=== PATIENT | male | born 1945 | race Caucasian/White ===

== ENCOUNTER 2017-04-13 10:55 | Day surgery (SDC) | payer MEDICARE ==
[2017-04-13 12:10] LABS: BASO % 0.5 % (0-6); EOS % 2.6 % (0-6); GRAN % 72.5 % (47-80); HEMATOCRIT 45.1 % (42.0-52.0); HEMOGLOBIN 15.5 gm/dl (14.0-18.0); LYMPH % 15.9 % (16-45); MEAN CELL VOLUME 87.1 fl (81-97); MEAN CORPUSCULAR HEMOGLOBIN 29.9 pg (27-33); MEAN CORPUSCULAR HGB CONC 34.4 g/dl (32-36); MEAN PLATELET VOLUME 9.5 fl (7.4-10.4); MONO % 8.5 % (0-9); PLATELET COUNT 190 K/uL (130-400); RED BLOOD COUNT 5.18 M/uL (4.40-5.70); RED CELL DISTRIBUTION WIDTH 13.1 % (11.5-14.5); WHITE BLOOD COUNT W/O DIFF 7.3 K/uL (4.2-12.2)
[2017-04-13 12:18] LABS: ALB/GLOB RATIO 1.4 (1.1-1.8); ALBUMIN 3.9 gm/dL (3.5-5.0); ALKALINE PHOSPHATASE 56 U/L (38-126); ALT/SGPT 53 U/L (21-72); ANION GAP 8.4 (7-16); AST/SGOT 23 U/L (17-59); BILIRUBIN,TOTAL 0.98 mg/dL (0.2-1.3); BLOOD UREA NITROGEN 16 mg/dL (9-20); CARBON DIOXIDE 31.6 mmol/L (22-30); CREATININE 1.2 mg/dL (0.66-1.25); EST GLOMERULAR FILTRATION RATE > 60 ml/min; GLUCOSE,RANDOM 121 mg/dL (70-110); TOTAL PROTEIN 6.6 gm/dL (6.3-8.2)
[2017-04-13] MEDS ORDERED: PROPOFOL 10 MG/ML VIAL IV ONE (14:00)
[2017-04-13] MEDS ORDERED: LIDOCAINE 2% MDV (20MG/ML) 20ML VIAL IV ONE (14:00)
--- NOTE | 2017-04-22 06:01 | Operative Note ---
DATE OF SURGERY: 04/13/2017 PROCEDURE: Cardioversion. Indication: Persistent atrial fibrillation. Operating Physician: Aravind Rich MD DESCRIPTION OF PROCEDURE: The patient was brought the cardioversion room in a fasting state. Defibrillation pads were applied in the anterior-posterior position. Anesthesia was administered. Then a synchronized direct current of 200 J of energy was used for cardioversion. However, that was not successful. We attempted 3 times but the patient remained in atrial fibrillation. IMPRESSION: Unsuccessful attempt at cardioversion with 200 J of biphasic energy which was tried 3 times. PLAN: The patient will be continued on rate-control strategy. [facility]
== END 2017-04-13 14:10 | disposition home or self-care (01) ==
LOC: SUR 10:55
PROVIDERS: ATTEND Internal Medicine
DX: I48.1 Persistent atrial fibrillation (principal); I10 Essential (primary) hypertension; E78.00 Pure hypercholesterolemia, unspecified; Z79.01 Long term (current) use of anticoagulants
CPT/HCPCS: 80053; 85025; 93005

== ENCOUNTER 2017-06-25 17:29 | Emergency (ER) | payer MEDICARE ==
--- NOTE | 2017-06-25 17:36 | Emergency Department Record ---
History of Present Illness - General Stated Complaint: FELL/SHOULDER INJURY Time Seen by Provider: 06/25/17 17:31 Source: Patient Mode of Arrival: Ambulatory Limitations: No limitations - History of Present Illness Initial Comments: The patient is here due to tripping and falling about 30 minutes ago at home and landing on his R shoulder. He denies any head injury, rib, chest, neck or abdominal injury. His only complaint is R shoulder pain. The patient does have a hx of Afib and is on Eliquis. He has been up walking since the injury and denies any hip, back or leg pain. MD Complaint: Fall, Pain Onset/Timin -: Minutes(s) - Related Data Home Medications Medication Instructions Recorded Confirmed Last Taken Amiodarone HCl [Pacerone] 1 tab PO DAILY 06/25/17 06/25/17 Unknown Apixaban [Eliquis] 1 tab PO DAILY 06/25/17 06/25/17 Unknown Aspirin [Aspir-Low] 1 tab PO DAILY 06/25/17 06/25/17 Unknown Atenolol 1 tab PO DAILY 06/25/17 06/25/17 Unknown Lovastatin [Lovastatin] 1 tab PO [id number] 06/25/17 06/25/17 Unknown Meloxicam [Meloxicam] 1 tab PO DAILY 06/25/17 06/25/17 Unknown Omeprazole [Omeprazole] 06/25/17 Unknown Silver Sulfadiazine [Silver 06/25/17 Unknown Sulfadiazine] Tramadol HCl [Tramadol HCl] 1 tab PO DAILY 06/25/17 06/25/17 Unknown Trazodone HCl 1 tab PO 06/25/17 Unknown Zolpidem Tartrate [Zolpidem 1 tab PO DAILY 06/25/17 06/25/17 Unknown Tartrate] Previous Rx's Medication Instructions Recorded Hydrocodone/Acetaminophen [[place] 1 each PO QID #15 tablet 06/25/17 5-325 Tablet] Allergies Allergy/AdvReac Type Severity Reaction Status Date / Time No Known Drug Allergies Allergy Verified 04/09/17 12:51 Review of Systems Constitutional: Denies: Chills, Fever Eyes: Denies: Eye discharge ENT: Denies: Congestion Respiratory: Denies: Cough, Dyspnea Past Medical History - SOCIAL HISTORY Smoking Status: Former smoker - RESPIRATORY Hx Respiratory Disorders: Yes Hx Dyspnea: Yes (recently- escpecially in winter) Hx Pneumonia: Yes (x2-not recently) Hx Sleep Apnea: Yes Hx of CPAP: Yes - CARDIOVASCULAR Hx Cardio Disorders: Yes Hx Abnormal EKG: Yes Hx Edema: Yes (in hands from arthritis) Hx Hypertension: Yes (meds good control) Hx Irregular Heartbeat: Yes (Afib) Hx Palpitations: Yes - NEURO Hx Neuro Disorders: No - GI Hx GI Disorders: Yes Hx Reflux: Yes Hx Hiatal Hernia: Yes Hx of Polyps: Yes (removed) - Hx Genitourinary Disorders: No - ENDOCRINE Hx Endocrine Disorders: No - MUSCULOSKELETAL Hx Musculoskeletal Disorders: Yes Hx Arthritis: Yes (hands/knees/shoulder-all over) - PSYCH Hx Psych Problems: Yes Hx Anxiety: Yes (sometimes) Hx Depression: Yes (sometimes) - HEMATOLOGY/ONCOLOGY Hx Hematology/Oncology Disorders: Yes Hx Cancer: Yes (melanoma upper back) Hx Chemotherapy: No Hx Radiation Therapy: No Hx Blood Transfusions: Yes (autologous with knee sx) Comment:: takes Eliquis for AFIB Family Medical History Hx Cancer: Father, Brother/Sister *Cancer Comment: -father melanoma Hx Heart Disease: Mother *Heart Comment: chf & AFIB Physical Exam - General General Appearance: Alert, Oriented x3, Cooperative, No acute distress - Head Head exam: Atraumatic, Normocephalic, Normal inspection (There are no signs of any trauma or injury to the head or face.) - Eye Eye exam: Normal appearance, PERRL - Neck Neck exam: Normal inspection, Full ROM. negative: Tenderness (There is no Cspine tenderness.) - Respiratory Respiratory exam: Normal lung sounds bilaterally. negative: Accessory muscle use, Chest wall tenderness (There is no rib tenderness.), Decreased breath sounds, Respiratory distress - Cardiovascular Cardiovascular Exam: Regular rate, Normal rhythm, Normal heart sounds - GI/Abdominal GI/Abdominal exam: Soft, Normal bowel sounds. negative: Tenderness - Extremities Extremities exam: Normal capillary refill, Tenderness (There is tenderness and a deformity of the R shoulder and a probable dislocation.), Other (The R arm and hand are NVI with normal radial pulses.). negative: Normal inspection ( There is an obvious deformity to the anterior shoulder but no swelling, bruising , or abrasions.), Full ROM, Joint swelling - Neurological Neurological exam: Alert, Normal gait. negative: Abnormal gait, Motor sensory deficit Course - Reevaluation(s) Reevaluation #1: Procedure note: The patient was given a total of 7.5 mg of Morphine for pain and 2 mg of Versed for sedation. The R shoulder dislocation was reduced using traction and countertraction with no difficulty. The procedure was successful on the first attempt. There were no complications. The R shoulder and arm were NVI post procedure and the patient's pain did resolve. 06/25/17 18:14 Reevaluation #2: The patient is doing very well at this time. He denies any BUTLER, neck pain, CP, SOB, AP or any chest wall pain with deep breathing. The R shoulder is MUCH improved and the pain is almost completely resolved at this time. On exam his head and neck are nontender. Lungs CTA bilaterally and his abdomen very soft and nontender. It appears the R shoulder is an isolated injury. The patient does have a sling in place. 06/25/17 18:34 Reevaluation #3: The patient is doing very well at this time. He is up walking with no pain or discomfort and no BUTLER, neck or abdominal pain. The R shoulder only very mildly painful with ROM and has no bruising evident. The R arm is NVI. I did discuss the plan to wear the sling for a week and then do ROM exercises for a few days and to be extra careful with the R shoulder. 06/25/17 18:52 Reevaluation #4: Post reduction R shoulder xray: normal alignment with good reduction. 06/28/17 07:07 Medical Decision Making - Data Complexity MDM Data: Labs Ordered and/or Reviewed, X-Ray Ordered and/or Reviewed - Lab Data Result diagrams: 06/25/17 05:54 06/25/17 05:54 - Radiology Data Radiology results: Report reviewed (R shoulder: Positive anterior dislocation. No fx.) Disposition Disposition: Discharge Clinical Impression: Dislocation, shoulder Qualifiers: Encounter type: initial encounter Laterality: right Qualified Code(s): S43.004A - Unspecified dislocation of right shoulder joint, initial encounter Disposition: Home, Self-Care Condition: (2) Stable Instructions: Shoulder Dislocation (ED) Additional Instructions: Please wear the R shoulder sling for 7-10 days and after a week do ROM exercises slowly. Take the [place] for pain if needed. Please see your PCP or Orthopedic doctor next week for recheck. Prescriptions: Hydrocodone/Acetaminophen [[place] 5-325 Tablet] 1 each PO QID #15 tablet Forms: Patient Portal Access Time of Disposition: 18:38 Quality - Quality Measures Quality Measures: N/A - Blood Pressure Screening View Details: Yes Does Patient Have Any of the Following: No Blood Pressure Classification: Pre-Hypertensive BP Reading Systolic Measurement: 120 Diastolic Measurement: 79 Screening for High Blood Pressure: < Pre-Hypertensive BP, F/U Documented > [ [id number]] Pre-Hypertensive Follow-up Interventions: Referral to alternative/primary care provider.
[2017-06-25] MEDS ORDERED: MORPHINE SULFATE 5 MG/ML PFS IVP ONE ×2 (17:38→17:50)
[2017-06-25] MEDS ORDERED: ONDANSETRON HCL IV 4 MG/2 ML VIAL IVP ONE (17:39)
[2017-06-25 17:45] LABS: BASO % 0.6 % (0-6); EOS % 2.6 % (0-6); GRAN % 68.2 % (47-80); HEMATOCRIT 46.8 % (42.0-52.0); HEMOGLOBIN 15.8 gm/dl (14.0-18.0); MEAN CELL VOLUME 87.2 fl (81-97); MEAN CORPUSCULAR HEMOGLOBIN 29.4 pg (27-33); MEAN CORPUSCULAR HGB CONC 33.8 g/dl (32-36); MEAN PLATELET VOLUME 9.4 fl (7.4-10.4); MONO % 7.6 % (0-9); PLATELET COUNT 234 K/uL (130-400); RED BLOOD COUNT 5.37 M/uL (4.40-5.70); WHITE BLOOD COUNT W/O DIFF 8.2 K/uL (4.2-12.2)
[2017-06-25 17:58] LABS: CREATININE 1.4 mg/dL (0.7-1.2); INR 1.07; PARTIAL THROMBOPLASTIN TIME 25.2 SECONDS (24.5-39.1); PROTHROMBIN TIME (PATIENT) 11.6 SECONDS (9.5-12.1)
[2017-06-25] MEDS ORDERED: MIDAZOLAM HCL 2MG/2ML VIAL IV ONE (18:34)
[2017-06-25] MEDS ORDERED: HYDROCODONE/APAP 5/325MG TABLET PO ONE (18:56)
--- NOTE | 2017-06-26 11:14 | RADIOLOGY REPORT ---
EXAM: SHOULDER, RIGHT HISTORY: PATIENT FELL TODAY WITH RIGHT SHOULDER PAIN. TECHNIQUE: Two views right shoulder. COMPARISON: None. ENCOUNTER: Initial. FINDINGS: There is an anterior subcoracoid dislocation of the humeral head. Small metallic density seen overlying the humeral head, presumably an anchor screw from prior orthopedic surgery and clinical correlation is suggested. There is some offset at the right AC joint with the lateral aspect of the clavicle actually somewhat inferiorly located relative to the acromion. This may be chronic for the patient and clinical correlation is suggested. Comparison to any old studies that include the right shoulder would be useful in this regard as well. No definite acute fracture of the right shoulder evident. IMPRESSION: 1. ANTERIOR SUBCORACOID DISLOCATION OF THE RIGHT HUMERAL HEAD. 2. APPARENT ANCHOR SCREW IN THE RIGHT HUMERAL HEAD. 3. INFERIOR LOCATION OF THE LATERAL ASPECT OF THE CLAVICLE RELATIVE TO THE ACROMION, QUESTIONABLY CHRONIC FOR THE PATIENT AND CLINICAL CORRELATION IS SUGGESTED. JOB NUMBER: [id number] MTDD
--- NOTE | 2017-06-26 11:18 | RADIOLOGY REPORT ---
EXAM: SHOULDER, RIGHT HISTORY: POST REDUCTION EVALUATION. TECHNIQUE: Two views right shoulder. COMPARISON: Right shoulder series from earlier this evening. ENCOUNTER: Initial. FINDINGS: There has been reduction of the previously seen anterior subcoracoid dislocation of the humeral head. There is better alignment at the AC joint as well with only very slight inferior subluxation of the lateral clavicle relative to the acromion. Relatively wide right AC joint may be postoperative in nature. Comparison with old films would be useful in this regard, as noted on the prior study from today as well. No acute fracture evident today. IMPRESSION: 1. REDUCTION OF THE PREVIOUSLY SEEN ANTERIOR SUBCORACOID DISLOCATION. 2. BETTER ALIGNMENT AT THE AC JOINT WELL, DESCRIBED ABOVE. JOB NUMBER: [id number] MTDD
== END 2017-06-25 19:07 | disposition home or self-care (01) ==
LOC: ER 17:29
DX: S43.014A Anterior dislocation of right humerus, initial encounter (principal); I10 Essential (primary) hypertension; I48.91 Unspecified atrial fibrillation; Z79.01 Long term (current) use of anticoagulants; W01.10XA Fall on same level from slipping, tripping and stumbling with subsequent striking against unspecified object, initial encounter; Y92.009 Unspecified place in unspecified non-institutional (private) residence as the place of occurrence of the external cause
CPT/HCPCS: 23650 ×2; 99284 ×2; 96374; 96375; 85025; 85730; 85610; 80048; 73030; J2405; J2270

== ENCOUNTER 2018-04-26 10:46 | Day surgery (SDC) | payer MEDICARE ==
[2018-04-26] MEDS ORDERED: PROPOFOL 10 MG/ML VIAL IV ONE (10:47)
[2018-04-26] MEDS ORDERED: LIDOCAINE 2% MDV (20MG/ML) 20ML VIAL IV ONE (10:47)
--- NOTE | 2018-04-28 21:52 | Operative Note ---
PROCEDURE: CARDIOVERSION. DATE OF PROCEDURE: 04/26/2018. OPERATING PHYSICIAN: ESDRAS ARIAS M.D. INDICATION: PERSISTENT ATRIAL FIBRILLATION. PROCEDURE DESCRIPTION: Mr. Atkinson was brought into the Cardioversion Room in a fasting state. The defibrillation pads were applied in the anteroposterior position. Anesthesia was administered and direct current was used for cardioversion. 100 joules of biphasic energy was used, which was successful on the first attempt. IMPRESSION: SUCCESSFUL DIRECT CURRENT SUPPORTED CARDIOVERSION WITH 100 JOULES OF BIPHASIC ENERGY. JOB NUMBER: [id number] MTDD
== END 2018-04-26 14:00 | disposition home or self-care (01) ==
LOC: SUR 10:46
PROVIDERS: ATTEND Internal Medicine
DX: Z79.01 Long term (current) use of anticoagulants (principal); I10 Essential (primary) hypertension; E11.9 Type 2 diabetes mellitus without complications; E78.00 Pure hypercholesterolemia, unspecified; E55.9 Vitamin D deficiency, unspecified; Z12.5 Encounter for screening for malignant neoplasm of prostate
CPT/HCPCS: 92960; 00410; 84450; 84460; 85025; 82306; 82150; 80048; 81001; 83036; 80061; 93005; G0103

== ENCOUNTER 2018-10-10 07:57 | Day surgery (SDC) | payer MEDICARE ==
[2018-10-10] MEDS ORDERED: PROPOFOL 10 MG/ML VIAL IV ONE (07:58)
[2018-10-10] MEDS ORDERED: LIDOCAINE 2% MDV (20MG/ML) 20ML VIAL IV ONE (07:58)
[2018-10-10] MEDS ORDERED: FENTANYL PF 100MCG/2ML VIAL IV ONE (07:58)
--- NOTE | 2018-10-11 12:31 | Operative Note ---
DATE OF SURGERY: 10/10/2018 OPERATION: ESOPHAGOGASTRODUODENOSCOPY with biopsy. INDICATION: Chronic gastroesophageal reflux disease. 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 He denies problems at this time using omeprazole daily. ANESTHESIA: Intravenous sedation was administered by the department of anesthesiology and included Diprivan titrated to effect. PROCEDURE: Following informed consent from this alert individual, including a discussion of the risks and benefits of the procedure and an opportunity for the patient to ask questions, the patient was in the left lateral decubitus position. The Olympus [id number] video endoscope was inserted into the esophagus without resistance. The proximal esophagus had a normal appearance with normal folds and distensibility. The mid esophagus likewise was free from changes. The distal esophageal segment demonstrated some slight variability to the GE squamocolumnar junction with a small island of possible Lawson's mucosa. Multiple biopsies were taken from this area. There was a 2 cm hiatal hernia also noted, which was free from mucosal changes. The subdiaphragmatic stomach was entered and found to be unremarkable. The pylorus was patent. The duodenal bulb, sweep and descending duodenum were examined in a serial fashion and found to be normal. The instrument was then withdrawn back into the body of the stomach where retroflexion accomplished following air insufflation again revealed a small hiatal hernia. The endoscope was then straightened and withdrawn through the esophagus and removed from the patient. He tolerated the procedure well and was returned to the recovery area in stable condition. IMPRESSION: 1. Slight irregularity of the squamocolumnar junction with a small island of possible Lawson's epithelium, biopsies taken. 2. Small hiatal hernia. 3. No ulcerations or erosions noted. RECOMMENDATION: Further recommendations will be forthcoming pending results of biopsy obtained today. The patient will continue on acid blockade therapy. Followup will also be with Dr. Rueda. As always, thank you for allowing me to participate in the care of your patient. CC: YAIR RUEDA MD, FACP [facility]
--- NOTE | 2018-10-11 12:31 | Operative Note ---
DATE OF SURGERY: 10/10/2018 OPERATION: COLONOSCOPY to the cecum. INDICATION: Prior history of adenomatous polyps. The patient returns at this time after 5 years for surveillance. ANESTHESIA: Intravenous sedation was administered by the department of anesthesiology and included Diprivan titrated to effect. PROCEDURE: Following informed consent from this alert individual including a discussion of the risks and benefits of the procedure and an opportunity for the patient to ask questions, the patient was in the left lateral decubitus position. A digital rectal examination was performed. No abnormalities were noted. Following this, the Olympus [id number] video colonoscope was inserted into the rectum without resistance. The rectal mucosa had a normal appearance with normal folds and distensibility. The sigmoid colon was cannulated and demonstrated scattered diverticula. The colonoscope was further advanced up through the bowel to the level of the cecum without difficulty. Throughout the remainder of the bowel, the mucosa appeared normal, the folds were normal, and the bowel was fairly well distensible. The colon preparation overall was good. Retroflexion in the cecum was endoscopically normal. From the base of the cecum, the colonoscope was then withdrawn. No changes were noted except for the diverticulosis seen in the sigmoid region. The colonoscope was then drawn back into the rectum where retroflexion accomplished following air insufflation failed to demonstrate any changes. On initial digital examination, there was some anal stenosis noted. No other changes were appreciated. The endoscope was removed. The patient tolerated the procedure well and was returned to the recovery area in stable condition. IMPRESSION: 1. Sigmoid diverticulosis. 2. Mild anal stenosis. 3. No polyps noted. RECOMMENDATIONS: The patient was advised to have recheck colonoscopy in 5 years' time or sooner should problems arise. Followup will otherwise be with Dr. Rueda. As always, thank you for allowing me to participate in the care of your patient. CC: YAIR RUEDA MD, FACP [facility]
== END 2018-10-10 09:49 | disposition home or self-care (01) ==
LOC: HOP 07:57
PROVIDERS: ATTEND Internal Medicine Gastroenterology
DX: Z12.11 Encounter for screening for malignant neoplasm of colon (principal); Z86.010 Personal history of colon polyps; K57.30 Diverticulosis of large intestine without perforation or abscess without bleeding; K62.4 Stenosis of anus and rectum; K21.9 Gastro-esophageal reflux disease without esophagitis; Z87.19 Personal history of other diseases of the digestive system; K31.89 Other diseases of stomach and duodenum; K44.9 Diaphragmatic hernia without obstruction or gangrene; I10 Essential (primary) hypertension; E78.00 Pure hypercholesterolemia, unspecified; I48.91 Unspecified atrial fibrillation; E11.9 Type 2 diabetes mellitus without complications
CPT/HCPCS: 00813; 43239; G0105